=== PATIENT | female | born 1955 | race Caucasian/White ===

== ENCOUNTER 2016-09-21 16:14 | Inpatient (IN) | payer MEDICAID, OTHER ==
[~2016-09-21] VITALS: Ht 154.9 cm; Wt 44.5 kg
[2016-09-21 19:05] LABS: BASOPHILS % 0.1 % (0.0-2.0); EOSINOPHILS % 0.1 % (0.0-5.0); HEMATOCRIT. 40.7 % (36.0-48.0); HEMOGLOBIN. 14.2 g/dL (12.0-16.0); LYMPHOCYTES % 18.5 % (20.0-50.0); MEAN CORPUSCULAR HEMOGLOBIN 30.2 pg (28.0-32.0); MEAN CORPUSCULAR VOLUME 86.7 fL (81.0-99.0); MEAN PLATELET VOLUME 9.1 fl (7.4-10.4); MONOCYTES % 5.5 % (2.0-8.0); NEUTROPHILS % 75.8 % (40.0-76.0); PLATELET 233 x1000/uL (130-400); RED CELL DISTRIBUTION WIDTH 12.4 % (11.6-14.6)
[2016-09-21 19:13] LABS: CARBON DIOXIDE 25 mEq/L (21-32); CHLORIDE 101 mEq/L (98-107); ETHANOL BLOOD < 10 mg/dL
[2016-09-21 19:15] LABS: CLARITY URINE CLEAR (CLEAR); COLOR URINE YELLOW (YELLOW); GLUCOSE URINE NEGATIVE (NEGATIVE); KETONES URINE 1+ (NEGATIVE); LEUKOCYTE ESTERASE URINE NEGATIVE (NEGATIVE); NITRITE URINE NEGATIVE (NEGATIVE); OCCULT BLOOD URINE NEGATIVE (NEGATIVE); PROTEIN URINE NEGATIVE (NEGATIVE); SPECIFIC GRAVITY URINE 1.009 (1.005-1.030); UROBILINOGEN URINE 0.2 E.U./dL (0.2-1.0)
[2016-09-21 19:19] LABS: TROPONIN I < 0.02 ng/mL (0.00-0.04)
[2016-09-21 19:35] LABS: *AMPHETAMINES SCREEN URINE NEGATIVE (NEGATIVE); *BARBITURATES SCREEN URINE NEGATIVE (NEGATIVE); *BENZODIAZEPINES SCREEN URINE NEGATIVE (NEGATIVE); *COCAINE SCREEN URINE NEGATIVE (NEGATIVE); CANNABINOID URINE SCREEN NEGATIVE (NEGATIVE); METHADONE URINE SCREEN NEGATIVE (NEGATIVE); OPIATES URINE SCREEN NEGATIVE (NEGATIVE); PHENCYCLIDINE URINE SCREEN NEGATIVE (NEGATIVE)
[2016-09-21] MEDS ORDERED: IPRATROPIUM BROMIDE (0.02%) 0.5MG/2.5ML NEB HHN STA (20:04)
[2016-09-21] MEDS ORDERED: ALBUTEROL (0.083%) 2.5MG/3ML NEB HHN STA (20:04)
[2016-09-22] MEDS ORDERED: DEXT 5%/0.45% NACL KCL 10MEQ/L 1,000 ML IV SCH (08:47)
[2016-09-22] MEDS ORDERED: ENOXAPARIN 40MG/0.4ML SYR SUBCUT SCH (09:00)
[2016-09-22] MEDS ORDERED: MAGNESIUM/ALUMINUM HYDROXIDE/SIMETHICONE 30ML UDC PO PRN (09:00)
[2016-09-22] MEDS ORDERED: HYDROCODONE/ACETAMINOPHEN 5/325MG TABLET PO PRN (09:00)
[2016-09-22] MEDS ORDERED: ACETAMINOPHEN 325MG TABLET PO PRN (09:00)
[2016-09-22] MEDS ORDERED: ASPIRIN 81MG EC TABLET PO SCH (09:00)
[2016-09-22] MEDS ORDERED: HYDROMORPHONE HCL/PF 2MG/ML CPJ IV PRN (09:00)
[2016-09-22] MEDS ORDERED: NA PHOS,M-B/NA PHOS,DI-BA ENEMA 118ML PR PRN (09:00)
[2016-09-22] MEDS ORDERED: IPRATROPIUM/ALBUTEROL 0.5-3(2.5)MG/3ML NEB INH PRN (09:00)
[2016-09-22] MEDS ORDERED: DIPHENHYDRAMINE 50MG/ML VIAL IV PRN (09:00)
[2016-09-22] MEDS ORDERED: GUAIFENESIN 200MG/10ML SUGAR FREE UDC PO PRN (09:00)
[2016-09-22] MEDS ORDERED: CLONIDINE 0.1MG TABLET PO PRN (09:00)
[2016-09-22] MEDS ORDERED: ONDANSETRON HCL 4MG/2ML VIAL IV PRN (09:00)
[2016-09-22] MEDS ORDERED: DOCUSATE SODIUM 100MG CAPSULE PO PRN (09:00)
[2016-09-22 10:05] LABS: CARBON DIOXIDE 25 mEq/L (21-32); CHLORIDE 101 mEq/L (98-107)
[2016-09-22] MEDS: LORAZEPAM 2MG/ML CPJ IV PRN (10:46)
[2016-09-22 12:00] VITALS: BP 95/64
[2016-09-22 12:09] VITALS: BP 95/64
[2016-09-22] MEDS: ENOXAPARIN 40MG/0.4ML SYR SUBCUT SCH (13:18)
[2016-09-22] MEDS: DEXT 5%/0.45% NACL KCL 10MEQ/L 1,000 ML IV SCH ×2 (14:27→23:27)
[2016-09-22] MEDS ORDERED: PROT40 PO (14:47)
[2016-09-22] MEDS ORDERED: METR-112 PO (14:47)
[2016-09-22] MEDS ORDERED: CLAR500T PO (14:47)
[2016-09-22 16:00] VITALS: BP 102/65
[2016-09-22 20:00] VITALS: BP 93/51
[2016-09-23] VITALS: BP 105/56
[2016-09-23] MEDS ORDERED: SUCR1TAB PO (02:15)
[2016-09-23] MEDS ORDERED: BACL20TA PO (02:15)
[2016-09-23] MEDS ORDERED: IBUP-1509 PO (02:15)
[2016-09-23] MEDS ORDERED: MELO-58 PO (02:15)
[2016-09-23] MEDS ORDERED: RANI300T4 PO (02:15)
[2016-09-23 04:00] VITALS: BP 116/70
[2016-09-23 06:08] LABS: CHLORIDE 104 mEq/L (98-107)
[2016-09-23 06:25] LABS: CARBON DIOXIDE 25 mEq/L (21-32); HDL CHOLESTEROL 69 mg/dL (40-59); LDL CHOLESTEROL 46 mg/dL (5-100); T4 FREE 1.45 ng/dL (0.76-1.46)
[2016-09-23 07:05] LABS: BASOPHILS % 0.4 % (0.0-2.0); EOSINOPHILS % 1.1 % (0.0-5.0); HEMATOCRIT. 35.8 % (36.0-48.0); HEMOGLOBIN. 12.5 g/dL (12.0-16.0); LYMPHOCYTES % 36.6 % (20.0-50.0); MEAN CORPUSCULAR HEMOGLOBIN 30.5 pg (28.0-32.0); MEAN CORPUSCULAR VOLUME 87.5 fL (81.0-99.0); MEAN PLATELET VOLUME 9.3 fl (7.4-10.4); MONOCYTES % 8.8 % (2.0-8.0); NEUTROPHILS % 53.1 % (40.0-76.0); PLATELET 209 x1000/uL (130-400); RED BLOOD CELL COUNT 4.09 mill/uL (4.2-5.4); RED CELL DISTRIBUTION WIDTH 12.2 % (11.6-14.6)
[2016-09-23 08:00] VITALS: BP 114/78
[2016-09-23] MEDS: DEXT 5%/0.45% NACL KCL 10MEQ/L 1,000 ML IV SCH ×2 (09:25→22:00)
[2016-09-23] MEDS: ENOXAPARIN 40MG/0.4ML SYR SUBCUT SCH (09:53)
[2016-09-23] MEDS: ASPIRIN 81MG EC TABLET PO SCH (09:53)
[2016-09-23 12:00] VITALS: BP 112/66
[2016-09-23 16:00] VITALS: BP 100/46
[2016-09-24] MEDS: DEXT 5%/0.45% NACL KCL 10MEQ/L 1,000 ML IV SCH (05:09)
[2016-09-24 08:00] VITALS: BP 120/66
[2016-09-24] MEDS: ENOXAPARIN 40MG/0.4ML SYR SUBCUT SCH (09:00)
[2016-09-24] MEDS: ASPIRIN 81MG EC TABLET PO SCH (09:00)
[2016-09-24] MEDS: LORAZEPAM 2MG/ML CPJ IV PRN (10:40)
[2016-09-24 11:42] VITALS: BP 105/72
[2016-09-24 12:02] VITALS: BP 105/72
== END 2016-09-24 12:19 | disposition home or self-care (01) | DRG 756 ==
LOC: ER 17:50 → 5WST 09-22 09:23 → EDBEDREQ 09-22 10:25 → EDBEDREQSVC 09-22 10:25 → EDBEDREQ 09-22 10:29 → ENRESERV 09-22 10:36 → CANRESERV 09-22 10:39 → ENRESERV 09-22 11:29 → ER 09-22 12:05
PROVIDERS: ADMIT Internal Medicine; ATTEND Internal Medicine
DX: F41.0 Panic disorder [episodic paroxysmal anxiety] (principal); G93.41 Metabolic encephalopathy; I10 Essential (primary) hypertension; E86.0 Dehydration; F32.9 Major depressive disorder, single episode, unspecified; E78.5 Hyperlipidemia, unspecified; E87.6 Hypokalemia; J44.9 Chronic obstructive pulmonary disease, unspecified; F41.9 Anxiety disorder, unspecified
CPT/HCPCS: 36415; 70450; 71010; 80048; 80053; 80061; 80305; 80307; 80329; 81003; 83690; 84439; 84443; 84484; 85025; 93005; 94640; 96374; 99285; G0482; J1650; J2060; J7611